=== PATIENT | female | born 1930 | race Caucasian/White ===

== ENCOUNTER 2016-11-21 10:29 | Emergency (ER) | payer MEDICARE, OTHER ==
[~2016-11-21] VITALS: Ht 168.9 cm; Wt 82.7 kg
[~2016-11-21 10:29] MED LIST: ACET65TA PO; ASPI81TA83 OR; BACT800T PO; BUPR1TAB53 PO; CALCTAB22 PO; DIOV160T5 OR; ESCITALOPRAM PO; FE G325T PO; FISH1000 PO; FISH100049 PO; LEXA1TAB PO; MULTIVIT PO; PREVINJ2 IM; QUETIAPINE PO; SENN8.6T17 PO; SIMV20TA2 OR; VALI10TA OR; VALS1TAB48 PO; VIT B-1 PO; VIT B-12; VIT-D PO; VITA1CAP7 PO; ZANT150T OR; ZYRT10CA PO; imodium PO
--- NOTE | 2016-11-21 11:57 | REP ---
CT Head without contrast HISTORY: Syncope COMPARISON: None Areas of decreased attenuation are present in the periventricular white matter. This represents small-vessel ischemic disease. There is no intraparenchymal hemorrhage, acute infarct, mass or midline shift. The ventricular system and cortical sulci are dilated consistent with minimal volume loss. There is no extra cerebral collection. There is no fracture. The visualized sinuses are clear. IMPRESSION: 1. Small vessel ischemic disease. 2. Minimal volume loss. Signed by Man Kee MD 11/21/2016 11:48 A
[2016-11-21] MEDS ORDERED: TETANUS/DIPHTHERIA TOX ADSORB ADULT 0.5ML SYR/VIAL (90714) IM ONE (12:00)
[2016-11-21 12:46] VITALS: BP 194/87
--- NOTE | 2016-11-22 08:37 | ECGEPIP ---
Stationary ECG Study [facility] - ED Test Date: 2016-11-21 Pat Name: TYREL BARROW Department: Room: - Gender: F [employer]: ct : 1930 Requested By: Tresa Ramirez Order Number: [id number] Reading MD: Juan F Pride Measurements Intervals [place] Rate: 80 P: 29 WI: 171 QRS: -39 QRSD: 86 T: 51 QT: 388 QTc: 448 Interpretive Statements SINUS RHYTHM LEFT AXIS DEVIATION PATTERN CONSISTENT WITH PULMONARY DISEASE NONSPECIFIC T-WAVE ABNORMALITY NO PRIORS Electronically Signed On 11-22-2016 8:36:58 EDT by Juan F Pride
== END 2016-11-21 12:48 | disposition home or self-care (01) ==
LOC: M ED 10:29
DX: S01.01XA Laceration without foreign body of scalp, initial encounter (principal); W06.XXXA Fall from bed, initial encounter; Y92.099 Unspecified place in other non-institutional residence as the place of occurrence of the external cause; Y93.89 Activity, other specified; Y99.9 Unspecified external cause status; Z79.82 Long term (current) use of aspirin; Z79.899 Other long term (current) drug therapy; Z88.8 Allergy status to other drugs, medicaments and biological substances

== ENCOUNTER → 2017-08-03 | Outpatient (REF) | payer MEDICARE, OTHER ==
[2017-08-06 20:54] LABS: FERRITIN 13 NG/ML (8-252); IRON (FE) 86 UG/DL (50-170); TOTAL IRON BINDING CAPACITY 452 UG/DL (250-450)
== END ==
LOC: M LAB REF 17:30
DX: D50.9 Iron deficiency anemia, unspecified (principal)
CPT/HCPCS: 83550